=== PATIENT | female | born 1970 | race American Indian/Alaskan Native ===

== ENCOUNTER 2018-06-02 12:06 | Emergency (ER) | payer SELFPAY ==
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
[2018-06-02] MEDS ORDERED: IBUPROFEN PO ONE (14:19)
[2018-06-02] MEDS ORDERED: NORCO 5/325 PO ONE (14:19)
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
--- NOTE | 2018-06-02 15:13 | XRay Report ---
LUMBOSACRAL SPINE, 3 VIEWS: History: Back pain Findings: The vertebral bodies, disk spaces and posterior elements are intact. No compression deformity or malalignment. The SI joints are symmetric and unremarkable. Impression: 1. No evidence for acute injury to the lumbar spine.
--- NOTE | 2018-06-02 15:14 | XRay Report ---
LEFT RIBS, 3 VIEWS: History: pain. Routine views of the rib cage demonstrate normal mineralization with no significant contour abnormalities, fractures or destructive lesions. PA view of the chest demonstrates no underlying cardiopulmonary abnormalities, fluid or pneumothorax. IMPRESSION: Unremarkable left rib series.
[2018-06-02 16:42] VITALS: BP 163/89
== END 2018-06-02 16:42 | disposition home or self-care (01) ==
LOC: ED 12:06
DX: R07.81 Pleurodynia (principal); M54.5 Low back pain; V49.49XA Driver injured in collision with other motor vehicles in traffic accident, initial encounter; Y93.89 Activity, other specified; Y92.89 Other specified places as the place of occurrence of the external cause; Y99.8 Other external cause status
CPT/HCPCS: 72100

== ENCOUNTER 2020-12-21 12:29 | Emergency (ER) | payer SELFPAY ==
[2020-12-21 14:49] VITALS: BP 138/84
--- NOTE | 2020-12-21 20:55 | Emergency Department Report ---
ED General Adult HPI - General Chief complaint: Head Injury Stated complaint: FALL/HIT HEAD Time Seen by Provider: 12/21/20 20:48 Source: patient Mode of arrival: Ambulatory Limitations: No Limitations - History of Present Illness Initial comments: 50-year-old female patient presents to the emergency department with complaints of dizziness and difficulty concentrating following a head injury 2 days ago. Patient states she accidentally bumped her head on the counter 2 days ago while she was cleaning her kitchen. There was no resulting loss of consciousness. Patient was not experiencing any symptoms other than a headache for the first 48 hours following the injury. She is able to recall the events surrounding the head injury in entirety. Today, patient developed dizziness and difficulty concentrating, and her mother prompted her to come to the emergency department for neurological evaluation. Patient has never been diagnosed with a concussion or suffered a prior head injury. Patient is not anticoagulated. Denies vision changes, seizure, syncope, neck pain, nausea, vomiting, abnormal bruising/bleeding. Denies all other complaints at this time. - Related Data Previous Rx's Medication Instructions Recorded Last Taken Type HYDROcodone/APAP 5-325 [[place] 1 each PO Q4HR PRN #12 tablet 06/02/18 Unknown Rx 5/325] Ibuprofen [Motrin] 600 mg PO Q8H PRN #20 tablet 06/02/18 Unknown Rx methOCARBAMOL [Robaxin TAB] 500 mg PO Q6H PRN #15 tablet 06/02/18 Unknown Rx Butalb/Acetaminophen/Caffeine 1 cap PO Q6HR PRN #10 cap 12/21/20 Unknown Rx [Fioricet 50-300-40 mg CAP] Meclizine [Antivert] 25 mg PO TID PRN #20 tablet 12/21/20 Unknown Rx Allergies Allergy/AdvReac Type Severity Reaction Status Date / Time No Known Allergies Allergy Unverified 06/02/18 12:30 ED Review of Systems ROS: Stated complaint: FALL/HIT HEAD Other details as noted in HPI Other: GENERAL: Negative for fever, chills, weight change, anorexia, fatigue. ENT: Negative for ear pain, difficulty hearing, sore throat, nasal congestion, epistaxis. CARDIOVASCULAR: Negative for chest pain, palpitations, lower extremity swelling. PULMONARY: Negative for cough, dyspnea, wheezing, orthopnea, cyanosis. GASTROINTESTINAL: Negative for abdominal pain, nausea, vomiting, diarrhea, constipation. MUSCULOSKELETAL: Negative for joint pain, joint swelling, myalgias, back pain, neck pain. NEUROLOGICAL: Positive for headache, dizziness, difficulty concentrating. INTEGUMENTARY: Negative for erythema, rash, diaphoresis, laceration, ecchymosis. HEMATOLOGICAL: Negative for hemoptysis, hematemesis, hematochezia, hematuria. PSYCHIATRIC: Negative for hallucinations, suicidal ideation, homicidal ideation, anxiety, depression. ED Past Medical Hx - Past Medical History Previous Medical History?: No - Surgical History Past Surgical History?: No Hx Cholecystectomy: Yes - Social History Smoking Status: Never Smoker Substance Use Type: None - Medications Home Medications: Home Medications Medication Instructions Recorded Confirmed Last Taken Type HYDROcodone/APAP 5-325 [[place] 1 each PO Q4HR PRN #12 tablet 06/02/18 Unknown Rx 5/325] Ibuprofen [Motrin] 600 mg PO Q8H PRN #20 tablet 06/02/18 Unknown Rx methOCARBAMOL [Robaxin TAB] 500 mg PO Q6H PRN #15 tablet 06/02/18 Unknown Rx Butalb/Acetaminophen/Caffeine 1 cap PO Q6HR PRN #10 cap 12/21/20 Unknown Rx [Fioricet 50-300-40 mg CAP] Meclizine [Antivert] 25 mg PO TID PRN #20 tablet 12/21/20 Unknown Rx ED Physical Exam - General Limitations: No Limitations - Other Other exam information: General: Awake and alert. No acute distress. Head: Right frontal scalp tenderness without obvious hematoma. No step-offs. No deformity. No ecchymosis suggestive of basilar skull fracture. Eyes: EOMI. Pupils are equal and round, reactive to light, no nystagmus. Normal sclera and conjunctiva. ENT: Oral mucosa is moist. Normal pharyngeal exam. Neck: Supple. No lymphadenopathy. Pulmonary: No respiratory distress. Clear to auscultation bilaterally. Cardiac: Regular rate and rhythm. Pulses are palpable and equal bilaterally. No lower extremity cyanosis or edema. Skin: Warm and dry. No rashes. Abdomen: Soft, non-tender, non-protuberant. No guarding, rigidity, or rebound. Bowel sounds are normal. No organomegaly or masses noted. Back: Normal alignment. No CVA tenderness. Extremities: Symmetrical. Full range of motion intact. Neurological: Alert and oriented, appropriately interactive, no focal deficits. Ambulatory without assistance. Cranial nerves II through XII intact. Strength and sensation intact throughout. Normal cerebellar [id number] and [id number] examination intact. Patient is able to spell short words and perform basic arithmetic although she does exhibit some difficulty concentrating with problem-solving exercises. Psych: Cooperative. Appropriate mood and affect. Speech is evenly metered. Thoughts are logically construed. ED Course Vital Signs 12/21/20 14:31 Temperature 98.5 F Pulse Rate 84 Respiratory 18 Rate Blood Pressure 138/84 O2 Sat by Pulse 99 Oximetry ED Medical Decision Making - Medical Decision Making Differential diagnosis including but not limited to: skull fracture, intracranial hemorrhage, concussion, scalp contusion Patient presents with complaints of acute traumatic headache. Patient meets none of the following criteria: age < 16 years, (+) anticoagulation, seizure following injury, GCS < 15, clinical evidence of skull fracture, > 2 episodes of vomiting, age > 65 years, retrograde amnesia to the event, "dangerous" mechanism. Therefore, according to the [place] Head CT Rule, patient does not have a statistically significant chance of an intracranial injury requiring neurosurgical intervention; CT of the head is not indicated at this time. Patient presents to the emergency department with signs/symptoms suggestive of concussion. Patient is not anticoagulated. No focal neurological deficits on examination. She is hemodynamically stable, ambulatory without assistance, tolerating oral intake without difficulty. No clinical indication for further diagnostic work-up on an emergent basis at this time. Patient will be discharged home with appropriate symptomatic treatment and referred to primary care provider for close outpatient follow-up. It was explained to the patient that concussions are a clinical diagnosis and while imaging is not indicated on an emergent basis at this time, outpatient MRI may be considered if symptoms persist. Emphasized the importance of scheduling an appointment with her primary care provider this week for repeat neurological assessment. Patient expressed understanding and is agreeable to plan of care. Lifestyle modifications discussed. Cognitive rest encouraged. Strict return precautions provided. =History, exam, diagnostic testing, and current condition do not suggest worrisome pathology to warrant further testing, continued ED treatment, admission, or surgical evaluation at this point. Given the low probability of a significant medical illness, it would be more likely to result in harm than benefit to perform further testing at this stage. Discussed findings, presumptive diagnosis, need for follow-up and specific signs/symptoms that should prompt immediate return to the emergency department. Instructions were ex plained in detail to the patient in addition to giving written discharge information. Patient expressed understanding and was given the opportunity to ask questions, all of which were satisfactorily answered prior to discharge home. Critical care attestation.: If time is entered above; I have spent that time in minutes in the direct care of this critically ill patient, excluding procedure time. ED Disposition Clinical Impression: Head injury Qualifiers: Encounter type: initial encounter Qualified Code(s): S09.90XA - Unspecified injury of head, initial encounter Disposition: HOME / SELF CARE / HOMELESS Is pt being admited?: No Does the pt Need Aspirin: No Condition: Stable Instructions: Post-Concussion Syndrome Additional Instructions: Take Fioricet as directed for headache. Take Meclizine as directed for dizziness. Rest. Drink plenty of fluids. Avoid bright lights and loud noises, which may worsen your symptoms. Avoid any type of physical activity which may make you susceptible to sustaining another head injury. Follow-up with your primary care provider for repeat neurological assessment this week. Call Thursday to schedule an appointment. Return to the emergency department immediately for new or worsening symptoms. Specifically, return to the emergency department immediately for worsening headache, vomiting, seizure, neck stiffness, vision changes, mental status changes, numbness, weakness, abnormal bleeding/bruising, or any other concerns. Prescriptions: Meclizine [Antivert] 25 mg PO TID PRN #20 tablet PRN Reason: Vertigo Butalb/Acetaminophen/Caffeine [Fioricet 50-300-40 mg CAP] 1 cap PO Q6HR PRN #10 cap PRN Reason: Headache Referrals: BRIAN ALFRED MD [Staff Physician] - 3-5 Days [facility] [Provider Group] - 3-5 Days Forms: Work/School Release Form(ED) Time of Disposition: 21:08
== END 2020-12-21 21:38 | disposition home or self-care (01) ==
LOC: ED 12:29
DX: S09.90XA Unspecified injury of head, initial encounter (principal); Z79.899 Other long term (current) drug therapy; Z90.49 Acquired absence of other specified parts of digestive tract; X58.XXXA Exposure to other specified factors, initial encounter; Y93.89 Activity, other specified; Y92.89 Other specified places as the place of occurrence of the external cause; Y99.8 Other external cause status
CPT/HCPCS: 99281